=== PATIENT | female | born 1980 | race Caucasian/White ===

== ENCOUNTER 2019-04-17 05:55 | Emergency (ER) | payer OTHER ==
--- NOTE | 2019-04-17 05:59 | ER Report ---
History and Physical Time Seen By MD: 05:59 HPI/ROS CHIEF COMPLAINT: Right eye pain and tearing HISTORY OF PRESENT ILLNESS: 38-year-old female reports a two-year history of recurrent eye pain. Patient states she was initially injured in her eye by a child who scratched her cornea. She states it never apparently healed. 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 Patient now has eye pain since last night. She has severe throbbing pain 9/10. She is unable to sleep. She notes tearing and redness. She does not wear contacts or glasses. She notes her vision is a little bit blurry. She's had some cold symptoms as well as her whole family. Allergies: Coded Allergies: No Known Drug Allergies (Unverified , 04/17/19) Home Meds Reported Medications Cholecalciferol (Vitamin D3) (VITAMIN D3) 1,000 Unit Tablet, 5000 UNIT PO DAILY, TAB 04/17/19 Constitutional Vital Sign - Last 24 Hours 04/17/19 06:00 Temp 98.2 Pulse 62 Resp 14 B/P (MAP) 128/72 Pulse Ox 97 O2 Delivery Room Air Physical Exam Vital signs stable, afebrile, pulse ox normal General appearance: Mild distress HEENT: TMs normal, right eye with gross injection, tearing, there is no corneal uptake when foreseen is instilled. Patient's pain is immediately relieved with proparacaine. Respiratory: Chest is non tender, lungs are clear to auscultation. Cardiac: Regular rate and rhythm DIFFERENTIAL DIAGNOSIS: After history and physical exam differential diagnosis was considered for corneal abrasion, iritis, eye pain, conjunctivitis Medical Decision Making ED Course/Re-evaluation ED Course Patient was admitted to an examination room. H&P was done. The differential diagnoses was considered. Patient with no corneal uptake to suggest corneal abrasion. There is no corneal edema. Patient with gross injection of her eye and eye pain. This is a recurring episode for 2 years. I'm suspicious the patient has iritis. She'll be treated with Tobrex drops. She's given proparacaine for pain relief. She's also advised ibuprofen and Tylenol. She is advised to follow-up with optometry in ophthalmology. She may need a rheumatology consultation. Decision to Disposition Date: April 17, 2019 Decision to Disposition Time: 06:18 Depart Departure Latest Vital Signs Vital Signs Date Time Temp Pulse Resp B/P (MAP) Pulse Ox O2 Delivery O2 Flow Rate FiO2 04/17/19 06:00 98.2 62 14 128/72 97 Room Air Impression: Primary Impression: Pain, eye, right Condition: Improved Disposition: HOME OR SELF-CARE Patient Instructions: Conjunctivitis (GEN) Additional Instructions: Use one drop of Tobrex solution twice daily in your right eye Use proparacaine drops as needed for anesthetic be cautious not to rub your eye, when it is numb Follow-up with processor helper or cocoa bean roaster for evaluation of your eyes. You may have iritis which is associated with some arthritic conditions MARCELLE COTA DO April 17, 2019 05:59
[2019-04-17 06:00] VITALS: BP 128/72
[2019-04-17] MEDS ORDERED: CHOL10005 PO (06:00)
[2019-04-17] MEDS ORDERED: PROPARACAINE 0.5% OP 15ML BTL OD ONE (06:05)
[2019-04-17] MEDS ORDERED: FLUORESCEIN SOD 1 MG 1 EA STRP OS ONE (06:05)
[2019-04-17] MEDS ORDERED: TOBRAMYCIN/DEX OP SUSP 2.5 ML OD ONE (06:20)
== END 2019-04-17 06:41 | disposition home or self-care (01) ==
LOC: ER 06:37
DX: H57.11 Ocular pain, right eye (principal)
CPT/HCPCS: 99283